=== PATIENT | female | born 1950 | race Caucasian/White ===

== ENCOUNTER 2018-10-06 08:11 | Inpatient (IN) | payer OTHER ==
[~2018-10-06] VITALS: Ht 167.6 cm; Wt 83.0 kg
[2018-10-06] MEDS ORDERED: LEVOTHY PO (08:46)
[2018-10-06] MEDS ORDERED: CLARITIN10 M1 PO (08:47)
[2018-10-06] MEDS ORDERED: SINGULAIR10 MG PO (08:47)
[2018-10-06] MEDS ORDERED: RANTIDINE PO (08:48)
[2018-10-18] MEDS ORDERED: LOTRISONE CREAM45 GM TOP (08:37)
[2018-10-18] MEDS ORDERED: PERCOCET 5-3251 EACH PO (08:37)
== END 2018-10-18 09:58 | DRG 743 ==
LOC: O/R 10-15 05:48 → OB/GYN 10-15 05:48 → SURH 10-15 07:00 → OB/GYN 10-15 13:12
PROVIDERS: ADMIT Specialist
PROC: 0UT27ZZ Resection of Bilateral Ovaries, Via Natural or Artificial Opening (ICD-10-PCS; 2018-10-15)
PROC: 0JQC3ZZ Repair Pelvic Region Subcutaneous Tissue and Fascia, Percutaneous Approach (ICD-10-PCS; 2018-10-15)
PROC: 0UT97ZZ Resection of Uterus, Via Natural or Artificial Opening (ICD-10-PCS; principal; 2018-10-15 07:00)
DX: N81.3 Complete uterovaginal prolapse (principal); D25.1 Intramural leiomyoma of uterus; D27.1 Benign neoplasm of left ovary; N72 Inflammatory disease of cervix uteri; N73.6 Female pelvic peritoneal adhesions (postinfective); E03.8 Other specified hypothyroidism